=== PATIENT | female | born 1970 | race Caucasian/White ===

== ENCOUNTER 2016-10-23 17:32 | Emergency (ER) | payer MEDICAID ==
[~2016-10-23] VITALS: Ht 165.1 cm; Wt 95.3 kg
[2016-10-23 18:52] LABS: Basophils # (auto) 0 uL; Basophils % (auto) 0.4 % (0.0-2.0); DEFINITIVE VIEW TRANSMISSION; Eosinophils # (auto) 0.1 uL; Eosinophils % (auto) 1.2 % (0.0-7.0); Hematocrit 32.7 % (36.0-46.0); Lymphocytes # (auto) 2.8 uL; Lymphocytes % (auto) 33.8 % (10.0-50.0); Mean Corpuscular Hgb Conc. 30.7 g/dL (32.0-36.0); Mean Corpuscular Volume 71.9 fL (80.0-100.0); Mean Platelet Volume 9.6 fL (7.4-10.4); Monocytes # (auto) 0.7 uL; Monocytes % (auto) 7.9 % (0.0-12.0); Neutrophils # (auto) 4.7 uL; Neutrophils % (auto) 56.7 % (37.0-80.0); Platelet Count (auto) 458 10^3/uL (140-450); White Blood Cell 8.3 10^3/uL (4.4-10.8)
[2016-10-23 18:55] LABS: Albumin 4.1 g/dL (3.4-5.0); Alkaline Phosphatase 81 U/L (45-117); Anion Gap 12 (5-15); Aspartate Aminotransferase 22 U/L (15-37); BUN/Creatinine Ratio 12.2; Bilirubin, Total 0.4 mg/dL (0.2-1.0); Blood Urea Nitrogen 12 mg/dL (7-18); Carbon Dioxide 26 mmol/L (21-32); Chloride 103 mmol/L (98-107); GFR African American 78 mL/min; GFR Non-African American 64 mL/min; Glucose 89 mg/dL (74-106); Potassium 3.2 mmol/L (3.5-5.1); Sodium 141 mmol/L (136-145); Total Protein 7.8 g/dL (6.4-8.2)
[2016-10-23 19:40] VITALS: BP 107/68
[2016-10-23] MEDS ORDERED: POTASSIUM CHL 20 Meq TABLET PO ONE (19:45)
== END 2016-10-23 20:11 | disposition home or self-care (01) ==
LOC: ER 17:32 → EDBD 17:32 → ER 20:11
DX: I47.1 Supraventricular tachycardia (principal); E07.89 Other specified disorders of thyroid; Z90.89 Acquired absence of other organs; Z98.51 Tubal ligation status
CPT/HCPCS: 36415; 80053; 83735; 84484; 85025; 93005

== ENCOUNTER 2018-12-16 15:44 | Emergency (ER) | payer MEDICAID ==
[~2018-12-16] VITALS: Ht 165.1 cm; Wt 90.3 kg
[2018-12-16 15:57] VITALS: BP 140/84
[2018-12-16] MEDS ORDERED: KETOROLAC TROMETH 60MG/2ML VIAL IM ONE (16:45)
[2018-12-16] MEDS ORDERED: METHOCARBAMOL 500 MG TAB PO ONE (16:45)
== END 2018-12-16 18:13 | disposition home or self-care (01) ==
LOC: EDBD 15:44 → ER 15:44
DX: S13.4XXA Sprain of ligaments of cervical spine, initial encounter (principal); I10 Essential (primary) hypertension; Z98.51 Tubal ligation status; Z90.89 Acquired absence of other organs; V43.52XA Car driver injured in collision with other type car in traffic accident, initial encounter; Y93.89 Activity, other specified; Y99.8 Other external cause status; Y92.410 Unspecified street and highway as the place of occurrence of the external cause
CPT/HCPCS: 72125; 96372; 99284; J1885